=== PATIENT | female | born 1985 | race Caucasian/White ===

== ENCOUNTER 2020-02-07 14:15 | Outpatient (CLI) | payer MEDICARE, MEDICAID, SELFPAY ==
--- NOTE | 2020-02-07 14:27 | XR_ITS ---
WS: [id number] LEFT KNEE: 2 VIEW(S) TECHNIQUE: AP and lateral. HISTORY: LEFT KNEE PAIN COMPARISON: 07/22/2011 No fracture or dislocation. No joint space narrowing or osteophytes. No joint effusion. No soft tissue abnormality. XR/XR knee LT 1-2V [id number] IMPRESSION: Normal LEFT knee.
== END 2020-02-07 14:16 | disposition home or self-care (01) ==
LOC: RADWPI 14:20
PROVIDERS: Family Provider Family Medicine; PCP Family Medicine; Visit Provider Nurse Practitioner Family
DX: M25.562 Pain in left knee (principal)
CPT/HCPCS: 73560

== ENCOUNTER 2020-07-18 09:22 | Emergency (ER) | payer MEDICARE, MEDICAID, SELFPAY ==
[2020-07-18 09:25] VITALS: BP 124/83; PULSE 82; RESP 18; TEMP 36.6; O2SAT 99; BMI 31.8
--- NOTE | 2020-07-18 09:29 | XR_ITS ---
WS: [id number] Portable AP upright chest, 07/18/2020 Clinical Data: CP Comparison: Portable chest, 03/07/2018. Findings: No nodules, masses or effusions are seen. The heart is normal. The pulmonary vascularity is not increased. No pneumonia or pneumothorax is seen. XR/XR chest 1V portable [id number] Impression: Negative chest.
--- NOTE | 2020-07-18 09:29 | ECG_ITS ---
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 Measurements Intervals [place] Rate: 85 P: 15 NH: 130 QRS: 45 QRSD: 86 T: 14 QT: 352 QTc: 421 Interpretive Statements SINUS RHYTHM NONSPECIFIC T-WAVE ABNORMALITY Compared to ECG 03/07/2018 22:05:41 No significant changes Electronically Signed On 07-18-2020 21:31:23 STEAM METER READER by Yane Moses M.D. [email or web address] [facility].[employer]/store/[id number]
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
[2020-07-18 10:15] LABS: Basophils % 0.2 %; Eosinophils # 0.1 10^3/uL (0.0-0.8); Eosinophils % 1.5 %; Hematocrit 45.6 % (37.0-47.0); Hemoglobin 15.1 g/dL (11.5-15.3); Lymphocytes # 3.1 10^3/uL (0.8-4.8); Lymphocytes % 33.7 %; Mean Corpuscular HGB Conc 33.1 g/dL (30.0-36.0); Mean Corpuscular Hemoglobin 29.2 pg (28.0-34.0); Mean Platelet Volume 10.5 fL (7.4-10.4); Monocytes # 0.5 10^3/uL (0.2-0.9); Monocytes % 5.6 %; Neutrophils # 5.38 10^3/uL (1.8-7.7); Neutrophils % 58.8 %; Nucleated Red Blood Cells % 0 %; Platelet Count 334 10^3/cmm (130-400); Red Blood Count 5.18 10^6/uL (4.1-5.3); Red Cell Distribution Width 12.3 % (12.1-15.1); White Blood Count 9.2 10^3/uL (4.0-10.0)
[2020-07-18 10:43] LABS: HCG, Serum Qual Negative (Negative)
[2020-07-18] MEDS: ketorolac 30 mg/mL INJ IVP (11:31)
[2020-07-18 12:47] LABS: Alanine Aminotransferase 70 U/L (0-33); Albumin Level 4.3 g/dL (3.5-5.2); Alkaline Phosphatase 82 IU/L (35-105); Aspartate Amino Transferase 42 U/L (0-32); Blood Urea Nitrogen 5 mg/dL (6-20); Calcium 9.3 mg/dL (8.5-10.5); Carbon Dioxide 24 mmol/L (22-29); Chloride 105 mmol/L (98-107); Creatinine Clr Calc Pharmacy 160.4251; Globulin 2.7 g/dL (1.3-4.6); Glomerular Filtration Rate 141.2 mL/min (90-130); Glucose 98 mg/dL (65-115); Osmolality Calculated 285 mOsm/kg (285-295); Sodium 139 mmol/L (136-145); Total Bilirubin 0.4 mg/dL (0.15-1.2)
[2020-07-18 12:48] LABS: Troponin T (5th) Once 6 ng/L (0-10)
--- NOTE | 2020-07-18 13:14 | ECG_ITS ---
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 Measurements Intervals [place] Rate: 80 P: 33 IN: 138 QRS: 41 QRSD: 87 T: 10 QT: 367 QTc: 425 Interpretive Statements SINUS RHYTHM NONSPECIFIC ST & T-WAVE ABNORMALITY Compared to ECG 07/18/2020 09:48:49 No significant changes Electronically Signed On 07-19-2020 13:56:18 GENERAL CARGO CLERK by Yane Moses M.D. [email or web address].WealthTouchgulf coast veterans health care systemWoopiewayne [email or web address]/store/NU/[id number] f
--- NOTE | 2020-07-18 13:18 | PC.NURSE ---
EKG done at 1315 and shown to ER physician
[2020-07-18 14:35] VITALS: BP 154/98; PULSE 86; RESP 18; O2SAT 98
== END 2020-07-18 14:03 | disposition home or self-care (01) ==
PROVIDERS: Emergency Provider Nurse Practitioner Family; PCP Family Medicine
DX: R07.89 Other chest pain (principal); M77.8 Other enthesopathies, not elsewhere classified
CPT/HCPCS: 12345; 36415; 71045; 80053; 84484; 84703; 85025; 93005; 96374; 96375; 99282; 99283; J0131; J1885

== ENCOUNTER 2020-08-05 14:15 | Outpatient (RCR) | payer MEDICARE, MEDICAID, SELFPAY | END 2020-08-11 23:59 | disposition home or self-care (01) | LOC: SPT 14:15 | PROVIDERS: PCP Family Medicine; Referring Provider Family Medicine; Visit Provider Family Medicine | DX: M25.512 Pain in left shoulder (principal) | CPT/HCPCS: 97110; 97161 ==

== ENCOUNTER 2020-08-12 06:00 | Outpatient (RCR) | payer MEDICARE, MEDICAID, SELFPAY | END 2020-09-08 23:59 | disposition home or self-care (01) | LOC: SPT 06:00 | PROVIDERS: PCP Family Medicine; Referring Provider Family Medicine; Visit Provider Family Medicine | DX: M25.512 Pain in left shoulder (principal) | CPT/HCPCS: 97110 ==

== ENCOUNTER 2020-09-03 22:20 | Emergency (ER) | payer MEDICARE, MEDICAID, SELFPAY ==
[2020-09-03 22:34] VITALS: BP 135/81; PULSE 95; RESP 18; TEMP 36.3; O2SAT 96; BMI 31.6
--- NOTE | 2020-09-03 23:36 | ED_ITS ---
HPI - Headache General: Chief Complaint: Headache Stated Complaint: migraine Time Seen by Provider: 09/03/20 22:27 Source: patient and other (caregiver) Mode of arrival: ambulatory Limitations: no limitations History of Present Illness: HPI Narrative: 35-year-old female patient presents to the emergency department with migraine headache. She reports onset at around 5 PM today. took prescribed migraine medication, was new prescription and the first time she took it. She is not able to recall the name and pharmacy is closed. She reports took the first dose without improvement, then took the second dose, she reports medication made her feel funny. She reports nausea with vomiting, she classifies her headache is a typical migraine but is worse since taking prescribed medication. She reports sustained a fall several weeks ago and is complaining of left shoulder pain since the fall. States slipped on ice. She denies further trauma or injury to the LUE She denies neck pain or abdominal pain. Palak has mild MR, able to live independently but has [facility] staff who care for her. Staff report her antianxiety medication was discontinued yesterday. MD elicited complaint: headache and migraine Onset description: gradually Location: generalized Severity: moderate Quality & Timing: aching, throbbing, squeezing and constant Exacerbating factors: exertion, light and noise Relieving factors: nothing Context: occurred at rest Associated symptoms: Reports nausea, photophobia and vomiting; Deny chest pain, diaphoresis, fever(s), malaise or rash Treatments prior to arrival: prescription analgesic Review of Systems General: Reports: 10 or more systems reviewed and unremarkable except in HPI and below Const: Denies: fever(s), chills, fatigue, malaise or diaphoresis Eyes: Denies: blurry vision, eye discomfort, eye redness, dry eyes or seeing flashes ENMT: Denies: throat pain, dental pain or disequilibrium Card: Denies: chest pain, palpitations, irregular heart rhythm, swelling of feet/ankles, dyspnea on exertion or orthopnea Resp: Denies: dyspnea, productive cough, non-productive cough or wheezing GI: Reports: nausea and vomiting; Denies: abdominal pain, heartburn, diarrhea, constipation or pain on defecation : Denies: difficulty voiding or dysuria Musc: Reports: joint pain (left shoulder); Denies: neck pain or back pain Skin/Breast: Denies: rash or pruritus Neuro: Reports: headache(s); Denies: numbness in extremities, weakness in extremities, difficulty walking or behavioral changes Psych: Denies: anxiety or depression Pepe/Lymph: Denies: easy bruising PFSH ED PFSH: Medical History ADHD Trisomy 13 Trisomy 14 Physical Exam Const: COMMON NORMALS: no acute distress, patient oriented x3, healthy appearing, alert and well nourished GENERAL APPEARANCE: cooperative, well kempt, well developed and well hydrated; not anxious NUTRITIONAL APPEARANCE: overweight ORIENTATION/CONSCIOUSNESS: Yes awake, Yes oriented to person, Yes oriented to place and Yes oriented to time HENMT: COMMON NORMALS: normocephalic, atraumatic, Normal external nose present and moist oral mucous membranes HEAD & SCALP: normal to inspection, normocephalic, atraumatic and scalp tenderness (global) FACE & SINUS: normal facial exam and face symmetric; no sinus tenderness NOSE: Normal external nose present and Normal nares present MOUTH: Normal oral and palatal mucosa present, lip normal and tongue normal Eye: COMMON NORMALS: Equal, round and reactive pupils present and EOMs intact bilaterally GENERAL EYE: appearance normal, both eyes and all related structures ALIGNMENT: Yes alignment normal EYELID: eyelids normal PUPIL: Yes Equal, round and reactive pupils present DIRECT OPHTHALMOSCOPY: Y es photophobia Neck/C-Spine: COMMON NORMALS: full ROM, no lymphadenopathy, supple and no meningeal signs GENERAL: Yes normal visual inspection and Yes trachea midline CERVICAL SPINE: Yes cervical ROM normal, No Cervical spine tenderness and No Paracervical muscle tenderness Lymph: LYMPHATIC: no lymphadenopathy noted Chest: COMMONS NORMALS: normal inspection of the chest and normal palpation of entire chest wall CHEST: Yes tenderness pectoral muscle on the left Resp: COMMON NORMALS: normal respiratory effort, No retractions, No use of accessory muscles and clear to auscultation bilaterally EFFORT & INSPECTION: Yes able to speak in complete sentences, No abnormal respiratory pattern, No respiratory distress and No labored AUSCULTATION: clear to auscultation bilaterally Cardio: COMMON NORMALS: regular rate, regular rhythm, S1 normal heart sound present, S2 normal heart sound present and Peripheral pulses 2+ throughout RATE: regular rate RHYTHM: regular rhythm HEART SOUNDS: S1 normal heart sound present and S2 normal heart sound present PERIPHERAL PULSES: Peripheral pulses 2+ throughout GI: COMMON NORMALS: Normal to inspection, nondistended, normoactive bowel sounds present, Soft to palpation and non-tender INSPECTION: Yes normal to inspection PALPATION: Yes Soft to palpation : COMMON NORMALS: Yes no CVA tenderness BLADDER/KIDNEY EXAM: Yes no CVA tenderness Back/Pelvis: COMMON NORMALS: no CVA tenderness and thoracic and lumbar spine normal to inspection Extremity: COMMON NORMALS: normal to inspection, full ROM, capillary refill normal, no clubbing, cyanosis or edema and no pedal edema GENERAL: Yes normal exam except as noted LEFT UPPER EXTREMITY: Yes shoulder joint Left shoulder joint: Yes inspection (normal), Yes palpation (tenderness anterior left pectoral muscle), Yes ROM (full RO without limitation) and Yes neurovascular exam (distally intact) Neuro: NINA COMA SCALE: document GCS findings [place] coma scale eye open ing: Spontaneous Nina coma scale verbal response: Orientated Nina coma scale motor response: Obey commands [place] coma scale total score: 15 COMMON NORMALS: patient oriented x3 and no focal motor deficits SENSORIUM/ORIENTATION: Yes alert, Yes oriented to person, Yes oriented to place and Yes oriented to time MENINGEAL SIGNS: Yes no meningeal signs SPEECH: speech normal GAIT: Yes Normal gait present MOTOR EXAM: 5/5 motor strength present throughout Psych: COMMON NORMALS: mental status grossly normal, Normal thought process present and cooperative APPEARANCE: Yes well kempt ACTIVITY/MOTOR BEHAVIOR: Yes appropriate eye contact THOUGHT PROCESS: Normal thought process present Skin: COMMON NORMALS: no rashes or lesions noted and turgor normal GENERAL SKIN EXAM: no rashes or lesions noted and turgor normal Course Vital Signs: Vital signs: Vital Signs Temperature 97.9 F 09/04/20 01:23 Pulse Rate 87 09/04/20 01:23 Respiratory Rate 17 09/04/20 01:23 Blood Pressure 135/81 09/03/20 22:34 Pulse Oximetry 96 09/04/20 01:23 MDM - Headache MDM Narrative: Medical decision making narrative: 35-year-old female presents to the emergency department with complaint of migraine headache. She was provided new medication by her primary care for migraine treatment. It was not effective with reducing migraine symptoms. She was administered migraine cocktail with relief at 1 hour. She reports was feeling better, was requesting to go home. She was able to tolerate p.o. fluids here in the ED prior to discharge. Nausea resolved. She did not require valproic acid infusion as pain improved. She also complained of left chest wall/shoulder pain status post fall 2 weeks prior. Pain resolved with use of medication. Full range of motion noted to the left shoulder with left chest wall pain reproduced with palpation. X-ray not completed secondary to full mobility. Discharge Plan Discharge Patient Disposition: Home Clinical Impression: Muscle strain of anterior chest wall Migraine Qualifiers: Migraine type: without aura Status migrainosus presence: with status migrainosus Intractability: intractable Qualified Code(s): G43.011 - Migraine without aura, intractable, with status migrainosus Condition: Stable Prescriptions: No Action IBU 800 mg tablet 800 mg PO TID PRN (Reason: pain) Qty: 30 RF: 0 Discharge Orders: Discharge ED (Routine); Ordered 09/04/20 Ordered By: Elmira Bower Referrals: Dalia Lamb MD [Primary Care Provider] - Discharge Diet: Advance as tolerated and Clear Liquid Discharge Activity: Limit activity as instructed Patient Instructions: Headache - Migraine (Adult), Migraine Headache (ED), Opioid Safety Activity Restrictions/Additional Instructions: ret at home today and tomorrow, return to the ED if you have the worst MINOR of your life follow up with Primary care for headache/migraine medication avoid triggers that cause migraine headaches Coding Level of Care Code ED Engraver Set Up Operator for Collins Fwd Exam Comprehensive
[2020-09-03 23:38] VITALS: PULSE 93; RESP 17; O2SAT 97
[2020-09-03] MEDS: metoclopramide 5 mg/mL SDV 2 mL 10 MG IVP (23:55)
[2020-09-03] MEDS: ketorolac 30 mg/mL INJ IVP (23:57)
[2020-09-04] MEDS: diphenhydrAMINE 50 mg/mL SDV 1mL 25 MG IVP
[2020-09-04] MEDS: dexamethasone 4 mg/mL INJ 8 MG IVP (00:01)
[2020-09-04] MEDS: sodium chloride 0.9% 500 ML 999 ML IV (00:01)
[2020-09-04 01:23] VITALS: PULSE 87; RESP 17; TEMP 36.6; O2SAT 96
== END 2020-09-04 01:23 | disposition home or self-care (01) ==
PROVIDERS: Emergency Provider Nurse Practitioner Family; PCP Family Medicine
DX: G43.011 Migraine without aura, intractable, with status migrainosus (principal); S29.011A Strain of muscle and tendon of front wall of thorax, initial encounter; W19.XXXA Unspecified fall, initial encounter
CPT/HCPCS: 96374; 96375; 99283; J1100; J1200; J1885; J2765; J7040

== ENCOUNTER → 2020-09-25 10:50 | Outpatient (BNVA) | payer MEDICARE, MEDICAID, SELFPAY | PROVIDERS: PCP Family Medicine; Visit Provider Obstetrics & Gynecology | DX: N91.2 Amenorrhea, unspecified (principal) | CPT/HCPCS: 82670; 83001; 83002; 84144; 84146; 84443; 84702; 85025 ==

== ENCOUNTER → 2020-10-02 08:11 | Outpatient (BNVA) | payer MEDICARE, MEDICAID, SELFPAY | PROVIDERS: PCP Family Medicine; Visit Provider Obstetrics & Gynecology | DX: N85.4 Malposition of uterus (principal) | CPT/HCPCS: 76856 ==

== ENCOUNTER → 2020-10-15 14:44 | Outpatient (BNVA) | payer MEDICARE, MEDICAID, SELFPAY | PROVIDERS: PCP Family Medicine; Visit Provider Obstetrics & Gynecology | DX: Z30.9 Encounter for contraceptive management, unspecified (principal) | CPT/HCPCS: 81025 ==

== ENCOUNTER 2020-10-26 11:03 | Emergency (ER) | payer MEDICARE, MEDICAID, SELFPAY ==
[2020-10-26 11:04] VITALS: BP 118/78; PULSE 89; RESP 16; TEMP 36.5; O2SAT 98; BMI 35.4
--- NOTE | 2020-10-26 11:13 | XRR_ITS ---
PROCEDURE INFORMATION: Exam: XR Chest Exam date and time: 10/26/2020 11:54 AM Age: 35 years old Clinical indication: Chest pain; Additional info: Cp TECHNIQUE: Imaging protocol: XR of the chest. Views: 1 view. COMPARISON: CR XR chest 1V portable [id number] 07/18/2020 9:52 AM FINDINGS: Lungs: Unremarkable. No consolidation. Pleural spaces: Unremarkable. No pleural effusion. No pneumothorax. Heart/Mediastinum: Unremarkable. No cardiomegaly. Bones/joints: Unremarkable. XR/XR chest 1V portable [id number] IMPRESSION: No acute findings.
--- NOTE | 2020-10-26 11:16 | ECG_ITS ---
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 Measurements Intervals [place] Rate: 83 P: 32 AL: 126 QRS: 31 QRSD: 89 T: 21 QT: 379 QTc: 447 Interpretive Statements SINUS RHYTHM Compared to ECG 07/18/2020 13:14:27 T-wave abnormality no longer present Electronically Signed On 10-27-2020 10:37:34 CDT by Yane Moses M.D. [id number]
[2020-10-26] MEDS: sodium chloride 0.9% 1,000 ML 999 ML IV (11:35)
[2020-10-26] MEDS: ketorolac 30 mg/mL INJ 15 MG IVP (11:35)
[2020-10-26] MEDS: ondansetron 2 mg/ML SDV 2 mL 4 MG IVP (11:35)
[2020-10-26 11:36] LABS: Basophils % 0.3 %; Eosinophils # 0.1 10^3/uL (0.0-0.8); Eosinophils % 0.9 %; Hematocrit 41.3 % (37.0-47.0); Lymphocytes # 2.6 10^3/uL (0.8-4.8); Lymphocytes % 27.4 %; Mean Corpuscular HGB Conc 33.9 g/dL (30.0-36.0); Mean Corpuscular Hemoglobin 29.8 pg (28.0-34.0); Mean Corpuscular Volume 87.9 fL (81-99); Mean Platelet Volume 9.8 fL (7.4-10.4); Monocytes # 0.7 10^3/uL (0.2-0.9); Neutrophils # 5.99 10^3/uL (1.8-7.7); Neutrophils % 64.2 %; Nucleated Red Blood Cells % 0 %; Platelet Count 324 10^3/cmm (130-400); Red Cell Distribution Width 12.2 % (12.1-15.1); White Blood Count 9.3 10^3/uL (4.0-10.0)
[2020-10-26 11:51] LABS: HCG, Serum Qual Negative (Negative)
[2020-10-26 11:54] LABS: D Dimer 0.38 ug/mIFEU (0-0.59)
[2020-10-26 12:05] LABS: Alanine Aminotransferase 64 U/L (0-33); Albumin Level 4.5 g/dL (3.5-5.2); Alkaline Phosphatase 86 IU/L (35-105); Anion Gap 17.1 (5-19); Aspartate Amino Transferase 39 U/L (0-32); Blood Urea Nitrogen 11 mg/dL (6-20); Calcium 8.7 mg/dL (8.5-10.5); Carbon Dioxide 21 mmol/L (22-29); Chloride 106 mmol/L (98-107); Globulin 2.6 g/dL (1.3-4.6); Glomerular Filtration Rate 141.2 mL/min (90-130); Glucose 100 mg/dL (65-115); Lipase 43 U/L (13-60); Osmolality Calculated 289 mOsm/kg (285-295); Potassium 4.1 mmol/L (3.5-5.1); Sodium 140 mmol/L (136-145); Total Bilirubin 0.5 mg/dL (0.15-1.2); Total Protein 7.1 g/dL (6.6-8.7)
[2020-10-26 12:06] LABS: Lactate (Lactic Acid level) 0.9 mmol/L (0.5-2.2)
[2020-10-26 12:07] LABS: Troponin(5th) Baseline 6 ng/L (0-10)
--- NOTE | 2020-10-26 12:15 | ED_ITS ---
HPI - Chest Pain General: Chief Complaint: Chest Pain Stated Complaint: N/V CP AND H/A Time Seen by Provider: 10/26/20 11:08 History of Present Illness: HPI narrative: Patient is a 35-year-old female with past medical history of migraines who comes to the ER complaining that yesterday evening she developed a migraine headache and started feeling nauseous and vomiting. Today she is feeling chest pain as well nausea, vomiting, and the headache persist. MD complaint: chest pain Timing of current episode: episodic Prior episodes: Yes Pain location: other (Diffusely in her left and right chest) Quality: sharp Associated symptoms: Reports abdominal pain, nausea and vomiting; Deny dyspnea or palpitations Review of Systems General: Reports: 10 or more systems reviewed and unremarkable except in HPI and below Const: Denies: fatigue Eyes: Denies: change in vision, blurry vision or eye redness ENMT: Denies: throat pain, swelling of lips/tongue, ear or mastoid pain or nasal congestion Card: Reports: chest pain; Denies: palpitations, irregular heart rhythm, edema, dyspnea on exertion or orthopnea Resp: Denies: dyspnea, productive cough or non-productive cough GI: Reports: abdominal pain, nausea and vomiting : Denies: flank pain, difficulty voiding, urinary frequency or urinary urgency Musc: Denies: neck pain, back pain, extremity pain, joint pain, joint redness, limited range of motion or muscle weakness Skin/Breast: Denies: rash, pruritus, erythema, skin pain or skin tenderness Neuro: Reports: headache(s); Denies: numbness in extremities, weakness in extremities, sensory changes, difficulty walking, dizziness, confusion or Slurred speech present Psych: Denies: anxiety or depression Endo: Denies: polyuria All/Imm: Denies: urticaria, throat swelling or tongue swelling PFSH ED PFSH: Medical History Anxiety and depression Diagnosed in 2016 and is well controlled with medication managed by her primary care provider Asthma Diagnosed at the age of 23 and is well controlled with as needed albuterol Migraine with aura No pertinent past medical history Denies diabetes, hypertension, seizures, DVT/PE PCP Baljeet Lamb Trisomy 13 And trisomy 14--has caregivers from [facility]. Is her own guardian at this time but states that her father who lives in [place] is applying for guardianship Surgical History S/P cholecystectomy 2013---laparoscopic procedure by Dr. Schaefer [place] [facility] [place] Family History Family/Other Stroke maternal uncle Grandfather Diabetes paternal Mother Diabetes Hypertension Denies family history of Colon cancer Ovarian cancer Heart disease Hyperlipidemia Breast cancer Uterine cancer Thyroid condition Physical Exam Const: COMMON NORMALS: no acute distress, average body habitus, patient oriented x3, no limitations, healthy appearing, alert and well nourished GENERAL APPEARANCE: cooperative, comfortable, well kempt and well developed ORIENTATION/CONSCIOUSNESS: Yes awake, Yes oriented to person, Yes oriented to place and Yes oriented to time HENMT: COMMON NORMALS: normocephalic, external ears normal and Normal external nose present HEAD & SCALP: normal to inspection and normocephalic NOSE: Normal external nose present EXTERNAL EAR: Yes external ears normal MOUTH: Normal oral and palatal mucosa present THROAT: posterior oropharynx normal Eye: COMMON NORMALS: Equal, round and reactive pupils present and EOMs intact bilaterally GENERAL EYE: appearance normal, both eyes and all related structures PUPIL: Yes Equal, round and reactive pupils present Neck/C-Spine: COMMON NORMALS: full ROM, no lymphadenopathy, no meningeal signs and no JVD GENERAL: Yes normal visual inspection Lymph: LYMPHATIC: no lymphadenopathy noted Chest: COMMONS NORMALS: normal inspection of the chest and normal palpation of entire chest wall Resp: COMMON NORMALS: normal respiratory effort, No retractions, No use of accessory muscles, clear to auscultation bilaterally and percussion normal EFFORT & INSPECTION: Yes able to speak in complete sentences AUSCULTATION: clear to auscultation bilaterally PERCUSSION: percussion normal Cardio: COMMON NORMALS: no JVD, regular rate, regular rhythm, S1 normal heart sound present, S2 normal heart sound present and Peripheral pulses 2+ throughout RATE: regular rate RHYTHM: regular rhythm HEART SOUNDS: S1 normal heart sound present and S2 normal heart sound present PERIPHERAL PULSES: Peripheral pulses 2+ throughout GI: COMMON NORMALS: Normal to inspection, nondistended, normoactive bowel sounds present, Soft to palpation, non-tender and no masses INSPECTION: Yes normal to inspection PALPATION: Yes Soft to palpation : COMMON NORMALS: Yes no CVA tenderness BLADDER/KIDNEY EXAM: Yes no CVA tenderness Back/Pelvis: COMMON NORMALS: no CVA tenderness, thoracic and lumbar spine normal to inspection, no thoracic nor lumbar tenderness and thoraco-lumbar ROM normal Extremity: COMMON NORMALS: normal to inspection, full ROM, capillary refill normal, no joint enlargement and no pedal edema GENERAL: Yes normal exam except as noted Neuro: COMMON NORMALS: patient oriented x3, CN's II-XII intact bilaterally, moves all extremities, no focal motor deficits, no sensory deficits noted and gait normal SENSORIUM/ORIENTATION: Yes alert, Yes oriented to person, Yes oriented to place and Yes oriented to time MENINGEAL SIGNS: Yes no meningeal signs Psych: COMMON NORMALS: mental status grossly normal, Normal thought process present, cooperative, normal affect and speech normal APPEARANCE: Yes well kempt ATTITUDE: Yes calm SPEECH: Yes normal speech THOUGHT PROCESS: Normal thought process present Skin: COMMON NORMALS: no rashes or lesions noted GENERAL SKIN EXAM: no rashes or lesions noted Course Vital Signs: Vital signs: Vital Signs Temperature 97.7 F 10/26/20 11:04 Pulse Rate 89 10/26/20 11:04 Respiratory Rate 16 10/26/20 11:04 Blood Pressure 118/78 10/26/20 11:04 Pulse Oximetry 98 10/26/20 11:04 MDM - Chest Pain MDM Narrative: Medical decision making narrative: The patient was given Zofr an, Toradol, and IV fluids. After reevaluation she says she feels much better and still has a mild headache. She is asking for discharge home. Troponin is negative and EKG is normal. Her chest pain is very atypical and unlikely true cardiac disease. She is stable for discharge home. ER with worsening symptoms otherwise follow-up with primary care physician in a couple days and get a repeat liver function test. Lab Data: Labs: Lab Results 10/26/20 10/26/20 10/26/20 Range/Units 11:28 11:28 11:28 WBC 9.3 (4.0-10.0) 10^3/ uL RBC 4.70 (4.1-5.3) 10^6/u L Hgb 14.0 (11.5-15.3) g/dL Hct 41.3 (37.0-47.0) % MCV 87.9 (81-99) fL MCH 29.8 (28.0-34.0) pg MCHC 33.9 (30.0-36.0) g/dL RDW 12.2 (12.1-15.1) % Plt Count 324 (130-400) 10^3/c mm MPV 9.8 (7.4-10.4) fL Neut % (Auto) 64.2 % Lymph % (Auto) 27.4 % [place] % (Auto) 7.0 % Eos % (Auto) 0.9 % Baso % (Auto) 0.3 % Neut # (Auto) 5.99 (1.8-7.7) 10^3/u L Lymph # (Auto) 2.6 (0.8-4.8) 10^3/u L [place] # (Auto) 0.7 (0.2-0.9) 10^3/u L Eos # (Auto) 0.1 (0.0-0.8) 10^3/u L Baso # (Auto) 0.0 (0.0-0.1) 10^3/u L Nucleated RBC % (a uto) 0 % Nucleated RBCs # 0.0 /100WBC D-Dimer (0-0.59) ug/mIFE U Sodium 140 (136-145) mmol/L Potassium 4.1 (3.5-5.1) mmol/L Chloride 106 (98-107) mmol/L Carbon Dioxide 21 L (22-29) mmol/L Anion Gap 17.1 (5-19) BUN 11 (6-20) mg/dL Creatinine 0.5 (0.5-0.9) mg/dL GFR Calculation 141.2 H (90-130) mL/min Glucose 100 (65-115) mg/dL Calculated Osmolal ity 289 (285-295) mOsm/k g Lactate 0.9 (0.5-2.2) mmol/L Calcium 8.7 (8.5-10.5) mg/dL Total Bilirubin 0.5 (0.15-1.2) mg/dL AST 39 H (0-32) U/L ALT 64 H (0-33) U/L Alkaline Phosphata se 86 (35-105) IU/L Troponin T Baselin e (0-10) ng/L Total Protein 7.1 (6.6-8.7) g/dL Albumin 4.5 (3.5-5.2) g/dL Globulin 2.6 (1.3-4.6) g/dL Lipase 43 (13-60) U/L HCG, Qual (Negative) 10/26/20 10/26/20 10/26/20 Range/Units 11:28 11:28 11:38 WBC (4.0-10.0) 10^3/ uL RBC (4.1-5.3) 10^6/u L Hgb (11.5-15.3) g/dL Hct (37.0-47.0) % MCV (81-99) fL MCH (28.0-34.0) pg MCHC (30.0-36.0) g/dL RDW (12.1-15.1) % Plt Count (130-400) 10^3/c mm MPV (7.4-10.4) fL Neut % (Auto) % Lymph % (Auto) % [place] % (Auto) % Eos % (Auto) % Baso % (Auto) % Neut # (Auto) (1.8-7.7) 10^3/u L Lymph # (Auto) (0.8-4.8) 10^3/u L [place] # (Auto) (0.2-0.9) 10^3/u L Eos # (Auto) (0.0-0.8) 10^3/u L Baso # (Auto) (0.0-0.1) 10^3/u L Nucleated RBC % (a uto) % Nucleated RBCs # /100WBC D-Dimer 0.38 (0-0.59) ug/mIFE U Sodium (136-145) mmol/L Potassium (3.5-5.1) mmol/L Chloride (98-107) mmol/L Carbon Dioxide (22-29) mmol/L Anion Gap (5-19) BUN (6-20) mg/dL Creatinine (0.5-0.9) mg/dL GFR Calculation (90-130) mL/min Glucose (65-115) mg/dL Calculated Osmolal ity (285-295) mOsm/k g Lactate (0.5-2.2) mmol/L Calcium (8.5-10.5) mg/dL Total Bilirubin (0.15-1.2) mg/dL AST (0-32) U/L ALT (0-33) U/L Alkaline Phosphata se (35-105) IU/L Troponin T Baselin e 6 (0-10) ng/L Total Protein (6.6-8.7) g/dL Albumin (3.5-5.2) g/dL Globulin (1.3-4.6) g/dL Lipase (13-60) U/L HCG, Qual Negative (Negative) Discharge Plan Discharge Patient Disposition: Home Clinical Impression: Migraine with aura Condition: Stable Prescriptions: New ondansetron 4 mg tablet,disintegrating 4 mg PO Q8H 4 Days Qty: 12 RF: 0 No Action loratadine [Claritin] 10 mg tablet 10 mg PO DAILY RF: 0 citalopram 10 mg tablet 10 mg PO DAILY RF: 0 albuterol sulfate [Ventolin HFA] 90 mcg/actuation HFA aerosol inhaler 2 puff inhalation Q6H PRNRF: 0 ondansetron HCl [Zofran] 4 mg tablet 4 mg PO Q8H PRNRF: 0 vitamin B complex [B Complex-Vitamin B12] Tablet 1 tab PO DAILY RF: 0 povidone-iodine [Betadine Swabsticks] 10 % swab 1 applic topical ONCE Qty: 1 RF: 0 Nexplanon 68 mg implant 1 implant subdermal .every 3 years Qty: 1 RF: 0 IBU 800 mg tablet 800 mg PO TID PRN (Reason: pain) Qty: 30 RF: 0 Discharge Orders: Discharge ED (Routine); Ordered 10/26/20 Ordered By: Dieudonne Herrera Referrals: Dalia Lamb MD [Primary Care Provider] - Discharge Diet: Advance as tolerated Discharge Activity: Resume usual activity Patient Instructions: Opioid Safety Activity Restrictions/Additional Instructions: You came in with a migraine and vomiting and now you are feeling somewhat better and asking for discharge. Please take Tylenol [id number] to help with your pain and Zofran prescription to help with nausea and vomiting. It dissolve in your mouth so please let it dissolve in your mouth and after 10 or 15 minutes start sipping water. Return to the ER with worsening symptoms otherwise follow- up with your primary care physician and make sure you that you get your liver enzymes repeated them as they were elevated today. Coding Level of Care Code ED [employer] for Chg Fwd Exam Comprehensive
[2020-10-26 12:39] LABS: Add Urine Microscopic? YES; Bilirubin Urine Neg (Negative); Blood Urine Neg (Negative); Glucose Urine UA Norm (Normal); Ketones Urine 1+ (Negative); Leukocyte Esterase Urine Trace (Negative); Nitrate Urine Negative (Negative); Protein Urine Neg (Negative); Urine Appearance Hazy (CLEAR); Urine Color Yellow (Yellow); Urobilinogen Urine Norm (Negative); pH Urine 5 (5-7)
[2020-10-26 12:41] LABS: Bacteria Urine 2+ /hpf; Mucus Urine 1+ /hpf; Squamous Epithelial Cell Urine 15-25 /hpf (0-5)
[2020-10-26 12:42] LABS: Add Urine Culture? No
[2020-10-26 12:43] VITALS: BP 109/63; PULSE 88; RESP 16; O2SAT 99
== END 2020-10-26 12:44 | disposition home or self-care (01) ==
PROVIDERS: Emergency Provider Family Medicine; PCP Family Medicine
DX: G43.109 Migraine with aura, not intractable, without status migrainosus (principal)
CPT/HCPCS: 71045; 80053; 81001; 83605; 83690; 84484; 84703; 85025; 85378; 93005; 96361; 96374; 96375; 99283; J1885; J2405; J7030

== ENCOUNTER 2020-10-29 23:07 | Emergency (ER) | payer MEDICARE, MEDICAID, SELFPAY ==
[2020-10-29 23:15] VITALS: BP 113/81; PULSE 89; RESP 18; TEMP 36.8; O2SAT 97
--- NOTE | 2020-10-30 00:14 | ED_ITS ---
HPI - Chest Pain General: Chief Complaint: Anxiety Stated Complaint: chest pain Time Seen by Provider: 10/29/20 23:42 Source: patient Mode of arrival: ambulatory Limitations: no limitations History of Present Illness: HPI narrative: Patient is a 35-year-old female who presents to ED today along with her caregiver for complaints of chest pain. Patient tells me she has had intermittent chest pain for the past 6 months. She tells me this evening she was arguing with her boyfriend when she began having pain. She was seen at our facility 4 days ago for a migraine but also com plained of chest pain on that visit. She had a normal CXR, EKG, and troponin. Patient was seen in our facility on 07/18 for complaints of chest pain and again had a normal work-up. Patient thinks she might develop chest pain prior to her migraine headaches. She does not complain of shortness of breath or difficulty breathing. Caregiver has not noticed any significant changes while at home. Denies exercise intolerance. complaint: chest pain Onset (ago): month(s) Timing of current episode: episodic Prior episodes: Yes Onset: during rest Pain location: left chest Pain radiation: left arm Relieving factors: nothing Exacerbating factors: stress Associated symptoms: Deny abdominal pain, dyspnea, fever(s), nausea, palpitations, syncope or vomiting Treatment prior to arrival: none Risk Factors: Coronary artery disease risk factors: none Thoracic aortic dissection risk factors: none Review of Systems Const: Denies: fever(s), chills, body aches, fatigue or malaise Eyes: Denies: change in vision or blurry vision ENMT: Denies: throat pain or odynophagia Card: Reports: chest pain; Denies: palpitations, irregular heart rhythm, edema, swelling of feet/ankles, lightheadedness, syncope, pre-syncope, dyspnea on exertion or orthopnea Resp: Denies: dyspnea, productive cough or pain on inspiration GI: Denies: abdominal pain, nausea, vomiting, heartburn or diarrhea : Denies: flank pain or dysuria Musc: Denies: neck pain, back pain or joint pain Skin/Breast: Denies: rash Neuro: Denies: headache(s) Psych: Reports: anxiety PFSH ED PFSH: Medical History Anxiety and depression Diagnosed in 2016 and is well controlled with medication managed by her primary care provider Asthma Diagnosed at the age of 23 and is well controlled with as needed albuterol Migraine with aura No pertinent past medical history Denies diabetes, hypertension, seizures, DVT/PE PCP Baljeet Lamb Trisomy 13 And trisomy 14--has caregivers from [facility]. Is her own guardian at this time but states that her father who lives in [place] is applying for guardianship Surgical History S/P cholecystectomy 2013---laparoscopic procedure by Dr. Schaefer at [facility] [place] Family History Family/Other Stroke maternal uncle Grandfather Diabetes paternal Mother Diabetes Hypertension Denies family history of Colon cancer Ovarian cancer Heart disease Hyperlipidemia Breast cancer Uterine cancer Thyroid condition Physical Exam Const: COMMON NORMALS: no acute distress, patient oriented x3 and alert EXAM LIMITATIONS: other limitations (mild cognitive delay) GENERAL APPEARANCE: cooperative ORIENTATION/CONSCIOUSNESS: Yes awake Chest: COMMONS NORMALS: normal inspection of the chest OTHER: patient reports that palpation across her chest directly reproduces her pain Resp: COMMON NORMALS: normal respiratory effort and clear to auscultation bilaterally AUSCULTATION: clear to auscultation bilaterally Cardio: COMMON NORMALS: regular rate and regular rhythm RATE: regular rate RHYTHM: regular rhythm Neuro: COMMON NORMALS: patient oriented x3 SENSORIUM/ORIENTATION: Yes alert Skin: COMMON NORMALS: no rashes or lesions noted GENERAL SKIN EXAM: no rashes or lesions noted Course Vital Signs: Vital signs: Vital Signs Temperature 98.3 F 10/29/20 23:15 Pulse Rate 89 10/29/20 23:15 Respiratory Rate 18 10/29/20 23:15 Blood Pressure 113/81 10/29/20 23:15 Pulse Oximetry 97 10/29/20 23:15 MDM - Chest Pain MDM Narrative: Medical decision making narrative: Patient had a normal CXR, EKG, and troponin 4 days ago. She has had the symptoms for over 6 months now. Chest pain is reproducible on exam. Her EKG today shows no changes from the EKG performed 4 days ago. There is no need to repeat any further testing from the emergency department. She tells me she has an appointment with PCP Dr. Lamb next week for reevaluation. I feel this is appropriate follow-up. Return to ED precautions given. EKG Data^: EKG 1: EKG interpretation date: 10/30/20 EKG interpretation time: 23:25 Interpretation: Sinus rhythm Rate [address] elevation or depression changes noted No acute changes noted when compared to EKG performed on 10/26 Discharge Plan Discharge Patient Disposition: Home Clinical Impression: Non-cardiac chest pain Condition: Stable Prescriptions: No Action loratadine [Claritin] 10 mg tablet 10 mg PO DAILY RF: 0 citalopram 10 mg tablet 10 mg PO DAILY RF: 0 albuterol sulfate [Ventolin HFA] 90 mcg/actuation HFA aerosol inhaler 2 puff inhalation Q6H PRNRF: 0 ondansetron HCl [Zofran] 4 mg tablet 4 mg PO Q8H PRNRF: 0 vitamin B complex [B Complex-Vitamin B12] Tablet 1 tab PO DAILY RF: 0 povidone-iodine [Betadine Swabsticks] 10 % swab 1 applic topical ONCE Qty: 1 RF: 0 Nexplanon 68 mg implant 1 implant subdermal .every 3 years Qty: 1 RF: 0 ondansetron 4 mg tablet,disintegrating 4 mg PO Q8H 4 Days Qty: 12 RF: 0 IBU 800 mg tablet 800 mg PO TID PRN (Reason: pain) Qty: 30 RF: 0 Discharge Orders: Discharge ED (Routine); Ordered 10/30/20 Ordered By: Jayla Christopher Referrals: Dalia Lamb MD [Primary Care Provider] - Patient Instructions: Chest Pain - Noncardiac, Chest Pain - Chest Wall Activity Restrictions/Additional Instructions: Please followup with Dr. Lamb next week as scheduled. Coding Level of Care Code ED Financial Analyst for Jorig Baltazar
[2020-10-30] MEDS: ketorolac 30 mg/mL INJ IM (00:21)
[2020-10-30 00:23] VITALS: BP 127/102; PULSE 87; RESP 18; O2SAT 96
== END 2020-10-30 00:25 | disposition home or self-care (01) ==
PROVIDERS: Emergency Provider Physician Assistant; PCP Family Medicine
DX: R07.89 Other chest pain (principal); Q91.7 Trisomy 13, unspecified
CPT/HCPCS: 96372; 99283; J1885

== ENCOUNTER → 2024-05-29 12:32 | Outpatient (BNVA) | payer MEDICARE, MEDICAID, SELFPAY | PROVIDERS: PCP Family Medicine; Referring Provider Family Medicine; Visit Provider Nurse Practitioner Family | DX: L73.2 Hidradenitis suppurativa (principal); D22.61 Melanocytic nevi of right upper limb, including shoulder; L81.4 Other melanin hyperpigmentation | CPT/HCPCS: 99204 ==

== ENCOUNTER → 2024-07-31 13:50 | Outpatient (BNVA) | payer MEDICARE, MEDICAID, SELFPAY | PROVIDERS: PCP Family Medicine; Visit Provider Nurse Practitioner Family | DX: D22.61 Melanocytic nevi of right upper limb, including shoulder (principal); L81.4 Other melanin hyperpigmentation; L73.2 Hidradenitis suppurativa; Z79.899 Other long term (current) drug therapy | CPT/HCPCS: 11900; 99213 ==

== ENCOUNTER 2024-08-28 09:24 | Outpatient (CLI) | payer MEDICARE, MEDICAID, SELFPAY | END 2024-08-28 09:25 | disposition home or self-care (01) | LOC: LAB 09:26 | PROVIDERS: PCP Family Medicine; Visit Provider Nurse Practitioner Family | DX: L73.2 Hidradenitis suppurativa (principal) | CPT/HCPCS: 36415; 86480 ==

== ENCOUNTER → 2024-10-24 14:29 | Outpatient (BNVA) | payer MEDICARE, MEDICAID, SELFPAY | PROVIDERS: PCP Family Medicine; Visit Provider Dermatology | DX: L73.2 Hidradenitis suppurativa (principal); Z79.899 Other long term (current) drug therapy | CPT/HCPCS: 99214 ==

== ENCOUNTER → 2025-01-29 10:21 | Outpatient (BNVA) | payer MEDICARE, MEDICAID, SELFPAY | PROVIDERS: PCP Family Medicine; Visit Provider Dermatology | DX: L73.2 Hidradenitis suppurativa (principal); L53.8 Other specified erythematous conditions; R20.8 Other disturbances of skin sensation; Z79.899 Other long term (current) drug therapy | CPT/HCPCS: 11900; 99214 ==

== ENCOUNTER → 2025-03-30 15:05 | Outpatient (BNVA) | payer MEDICARE, MEDICAID, SELFPAY | PROVIDERS: PCP Family Medicine; Visit Provider Family Medicine | DX: L03.119 Cellulitis of unspecified part of limb (principal) | CPT/HCPCS: 87070; 87075; 87205; 87210 ==

== ENCOUNTER → 2025-05-04 15:43 | Outpatient (BNVA) | payer MEDICARE, MEDICAID, SELFPAY | PROVIDERS: PCP Family Medicine; Visit Provider Family Medicine | DX: R73.03 Prediabetes (principal); E66.812 Obesity, class 2; L73.2 Hidradenitis suppurativa; L03.818 Cellulitis of other sites | CPT/HCPCS: 83525; 87070 ==

== ENCOUNTER → 2025-06-15 11:18 | Outpatient (BNVA) | payer MEDICARE, MEDICAID, SELFPAY | PROVIDERS: PCP Family Medicine; Visit Provider Dermatology | DX: L73.2 Hidradenitis suppurativa (principal); L73.0 Acne keloid; Z79.899 Other long term (current) drug therapy | CPT/HCPCS: 99214 ==